=== PATIENT | female | born 1990 | race African-American/Black ===

== ENCOUNTER 2024-07-02 00:59 | Inpatient (IN) | payer OTHER ==
[2024-07-02 01:44] VITALS: BMI 26.9
[2024-07-02] MEDS ORDERED: BENZOCAINE/MENTHOL (CHLORASEPTIC ) LOZENGE MM PRN (02:29)
[2024-07-02] MEDS ORDERED: LOPERAMIDE HCL 2 MG CAPSULE PO PRN (02:29)
[2024-07-02] MEDS ORDERED: BISMUTH SUBSALICYLATE 524 MG/30 ML PO PRN (02:29)
[2024-07-02] MEDS ORDERED: IBUPROFEN 600 MG TABLET (FP) PO PRN (02:29)
[2024-07-02] MEDS ORDERED: MAGNESIUM HYDROX 2400MG/30ML ORAL SUSPENSION 30 ML CUP PO PRN (02:29)
[2024-07-02] MEDS ORDERED: POLYETHYLENE GLYCOL (HEALTHYLAX) 3350 17 GM PACKET PO PRN (02:29)
[2024-07-02] MEDS ORDERED: ACETAMINOPHEN 325 MG TABLET (FP) PO PRN (02:29)
[2024-07-02] MEDS ORDERED: DICYCLOMINE HCL 10 MG CAPSULE PO PRN (02:29)
[2024-07-02] MEDS ORDERED: ONDANSETRON *ODT* 4 MG TABLET SL PRN (02:29)
[2024-07-02] MEDS ORDERED: NALOXONE HCL 0.4 MG/ML VIAL IM PRN (02:29)
[2024-07-02] MEDS ORDERED: NALOXONE (NARCAN) HCL 4 MG/0.1 ML SPRAY NS PRN (02:29)
[2024-07-02] MEDS ORDERED: IBUPROFEN 400 MG TABLET (FP) PO PRN (02:29)
[2024-07-02] MEDS ORDERED: guaiFENesin 600 MG TABLET.ER (FP) PO PRN (02:29)
[2024-07-02] MEDS ORDERED: BENZONATATE 200 MG CAPSULE PO PRN (02:29)
[2024-07-02] MEDS ORDERED: MAG HYDROX/AL HYDROX/SIMETH 30 ML UNIT-DOSE CUP PO PRN (02:29)
[2024-07-02] MEDS ORDERED: chlordiazePOXIDE HCL 25 MG CAPSULE PO PRN (02:31)
[2024-07-02] MEDS: chlordiazePOXIDE HCL 25 MG CAPSULE PO SCH ×2 (05:51→17:33)
[2024-07-02] MEDS: PRENATAL VITAMINS W/ FOLIC ACID TABLET (FP) PO SCH (10:17)
[2024-07-02] MEDS: MELATONIN 5 MG TABLETS PO SCH (22:10)
[2024-07-02] MEDS: THIAMINE 100 MG TABLET PO SCH (22:10)
[2024-07-02] MEDS: hydrOXYzine PAMOATE 25 MG CAPSULE (FP) PO PRN (22:35)
[2024-07-02] MEDS: METHOCARBAMOL 500 MG TABLET PO PRN (22:35)
[2024-07-03] MEDS: chlordiazePOXIDE HCL 25 MG CAPSULE PO SCH (05:58)
[2024-07-03 11:23] LABS: HEMATOCRIT 34.8 % (32.4-45.2); HEMOGLOBIN 11.4 GM/dL (10.7-15.3); MCH 29.9 pg (25.7-33.7); MCHC 32.8 g/dl (32.0-36.0); MEAN CELL VOLUME 91.1 fl (80-96); MEAN PLT VOLUME 8.3 fl (7.5-11.1); PLATELET COUNT 306 10^3/uL (134-434); RBC 3.82 M/mm3 (3.60-5.2); RDW 13.6 % (11.6-15.6); WHITE BLOOD COUNT 6.3 K/mm3 (4.0-10.0)
[2024-07-03 13:14] LABS: POTASSIUM 3.9 mmol/L (3.5-5.1)
[2024-07-03 13:20] LABS: ALBUMIN 3.1 g/dl (3.4-5.0)
[2024-07-03 13:22] LABS: BILIRUBIN,TOTAL 1.7 mg/dL (0.2-1); CREATININE 0.7 mg/dL (0.55-1.3); TOT PROT 6.5 g/dl (6.4-8.2)
[2024-07-03] MEDS: LACTULOSE 20 GM/30 ML UDC (FOR ORAL USE ONLY) PO SCH (14:27)
[2024-07-04] MEDS ORDERED: chlordiazePOXIDE HCL 10 MG CAPSULE PO PRN
[2024-07-04] MEDS: chlordiazePOXIDE HCL 10 MG CAPSULE PO SCH (05:55)
[2024-07-05] MEDS: chlordiazePOXIDE HCL 10 MG CAPSULE PO SCH (05:10)
[2024-07-06] MEDS: chlordiazePOXIDE HCL 10 MG CAPSULE PO ONE (05:06)
[2024-07-06 09:48] VITALS: RESP 18
[2024-07-06 17:32] VITALS: BP 139/94; PULSE 90; TEMP 98.2
== END 2024-07-06 18:05 | disposition home or self-care (01) | DRG 775 ==
LOC: YASAS 00:59 → Y6N 02:43
PROVIDERS: ADMIT Allergy & Immunology; ATTEND Allergy & Immunology
PROC: HZ2ZZZZ Detoxification Services for Substance Abuse Treatment (ICD-10-PCS; principal; 2024-07-02)
DX: F10.230 Alcohol dependence with withdrawal, uncomplicated (principal); F41.9 Anxiety disorder, unspecified; F32.A Depression, unspecified; E72.20 Disorder of urea cycle metabolism, unspecified; E80.6 Other disorders of bilirubin metabolism; Z56.0 Unemployment, unspecified; Z59.00 Homelessness unspecified
CPT/HCPCS: 36415; 80053; 80305; 80307; 81025; 82140; 85027; 86780; 93005; 93010